=== PATIENT | male | born 1980 | race Caucasian/White ===

== ENCOUNTER 2018-08-12 09:50 | Emergency (ER) | payer SELFPAY ==
[~2018-08-12] VITALS: Ht 185.4 cm; Wt 96.8 kg
[2018-08-12 10:19] VITALS: BP 126/75; Ht 185.4 cm; Wt 96.8 kg
== END 2018-08-12 11:33 | disposition left against medical advice (07) ==
LOC: D.ER 09:50
DX: L02.214 Cutaneous abscess of groin (principal)